=== PATIENT | female | born 1980 | race African-American/Black ===

== ENCOUNTER 2016-10-30 01:52 | Inpatient (IN) | payer OTHER ==
[2016-10-30 06:23] LABS: Hematocrit 40 % (35-47); Hemoglobin 13.7 g/dl (12.0-16.0); Mean Corpuscular HGB Conc 34 g/dl (31-36); Mean Corpuscular Hemoglobin 32 pg (27-31); Mean Corpuscular Volume 93 fL (80-97); Mean Platelet Volume 9 um3 (7.4-10.4); Red Blood Count 4.26 10^6/ul (4.0-5.4); Red Cell Distribution Width 13 % (10.5-15); White Blood Count 13.3 10^3/ul (3.5-10.8)
[2016-10-30] MEDS ORDERED: Lidocaine 1% MPF* 2 ML VIAL ONE (11:08)
[2016-10-30] MEDS ORDERED: OBEPIDURAL* 250 ML ONE (12:18)
[2016-10-30] MEDS ORDERED: fentaNYL* 50 MCG/ML 2 ML VIAL (100 MCG VIAL) ONE (12:19)
[2016-10-30] MEDS ORDERED: Bupivacaine 0.5% SDV PF* 30 ML VIAL ONE (12:31)
[2016-10-30] MEDS ORDERED: Phenylephrine IV* 40 MCG/ML 10 ML SYRINGE IV PUSH PRN ×2 (13:04)
[2016-10-30] MEDS ORDERED: Sodium Citrate/Citric Acid* 15 ML UDC PO PRN (13:04)
[2016-10-30] MEDS ORDERED: Famotidine TAB* 20 MG PO PRN (13:04)
[2016-10-30] MEDS ORDERED: OBEPIDURAL* 250 ML EPIDURAL SCH (14:00)
[2016-10-30] MEDS ORDERED: Oxytocin in LR* 20 UNITS/1,000 ML BAG IVPB ONE (17:50)
[2016-10-30] MEDS ORDERED: Oxytocin in LR* 20 UNITS/1,000 ML BAG IVPB SCH (18:00)
[2016-10-31] MEDS ORDERED: ceFOXitin 2 GM IVPREMIX* 2 GM/50 ML BAG ONE (00:20)
[2016-10-31] MEDS ORDERED: ceFOXitin 2 GM IVPREMIX* 2 GM/50 ML BAG IVPB ONE (00:20)
[2016-10-31] MEDS ORDERED: Sodium Citrate/Citric Acid* 15 ML UDC PO ONE (00:21)
[2016-10-31] MEDS ORDERED: Famotidine IV* 10 MG/ML 2 ML (20 mg) ONE (00:57)
[2016-10-31] MEDS ORDERED: OXYTOCIN* 10 UNITS/ML 1 ML VIAL ONE ×2 (00:57→01:17)
[2016-10-31] MEDS ORDERED: Ondansetron INJ* 2 MG/ML VIAL IV PRN (01:26)
[2016-10-31] MEDS ORDERED: fentaNYL* 50 MCG/ML 2 ML VIAL (100 MCG VIAL) IV PRN (01:26)
[2016-10-31] MEDS ORDERED: PROCHLORPERAZINE INJ 5 MG/ML 2 ML VIAL IV PRN (01:26)
[2016-10-31] MEDS ORDERED: Acetaminophen TAB* 325 MG PO PRN ×2 (01:26→02:19)
[2016-10-31] MEDS ORDERED: Phenylephrine IV* 40 MCG/ML 10 ML SYRINGE ONE (01:33)
[2016-10-31] MEDS ORDERED: Phenylephrine IV* 40 MCG/ML 10 ML SYRINGE IV PUSH PRN (01:34)
[2016-10-31] MEDS ORDERED: EPHEDrine (Pressors)* 50 MG/ML VIAL IV PUSH PRN (01:34)
[2016-10-31] MEDS ORDERED: Misoprostol TAB* 200 MCG ONE (01:41)
[2016-10-31] MEDS ORDERED: OBEPIDURAL* 250 ML EPIDURAL SCH (02:00)
[2016-10-31] MEDS ORDERED: Dibucaine 1% 28.35 GM TUBE PR PRN (02:19)
[2016-10-31] MEDS ORDERED: Glycerin ADULT SUPP PR PRN (02:19)
[2016-10-31] MEDS ORDERED: Misoprostol TAB* 200 MCG PR ONE (02:19)
[2016-10-31] MEDS ORDERED: Witch Hazel PAD* JAR TOPICAL PRN (02:19)
[2016-10-31] MEDS ORDERED: Oxytocin in LR* 20 UNITS/1,000 ML BAG IVPB SCH (03:00)
[2016-10-31] MEDS: Docusate CAP* 100 MG PO SCH ×3 (07:49→20:56)
[2016-10-31] MEDS: Ibuprofen TAB* 600 MG PO PRN ×3 (07:49→20:57)
[2016-10-31] MEDS: Simethicone CHEW TAB* 80 MG PO SCH ×4 (07:50→20:56)
[2016-10-31] MEDS: oxyCODONE/Acetamin 5/325 MG* TAB PO PRN ×3 (08:57→18:56)
[2016-10-31] MEDS ORDERED: oxyCODONE/Acetamin 5/325 MG* TAB PO PRN (09:01)
--- NOTE | 2016-10-31 12:29 | OP ---
DATE OF OPERATION: 10/30/16 - ROOM #[facility] #[id number] DATE OF : 84 SURGEON: Danna Medina MD NUMERICAL CONTROL ROUTER OPERATOR: Jeniffer Sprague, licensed customs broker. ANESTHESIOLOGIST: Dr. Wallace. ANESTHESIA: Epidural. PRE-OP DIAGNOSIS: Full-term intrauterine , arrest of descent at fully dilated. POST-OP DIAGNOSIS: Full-term intrauterine , arrest of descent at fully dilated. OPERATIVE PROCEDURE: Primary low-flap transverse section via Pfannenstiel. Uterus closed in 2 layers. FINDINGS: Viable male infant in the direct occiput posterior position, cord around the neck x1, meconium stained amniotic fluid. Normal-appearing uterus, normal- appearing ovaries, and fallopian tubes bilaterally. CONDITION: The patient was brought to the recovery room awake and in stable condition. ESTIMATED BLOOD LOSS: 800 cc. URINE OUTPUT: Per nursing notes. COMPLICATIONS: None. COUNTS: Sponge, lap, and needle count were correct x2. DESCRIPTION OF PROCEDURE: The patient was brought to the operating room when epidural anesthesia was found to be adequate. The patient was prepped and draped in the usual sterile fashion in a dorsal supine position with a leftward tilt. A Monk catheter had been placed during labor under sterile conditions. A time-out was performed. The epidural was tested with the Allis clamp and found to be adequate. A Pfannenstiel skin incision was made approximately 2 cm above the symphysis pubis. This was carried down to the underlying layer of fascia. The fascia was incised in the midline and the fascial incision was extended laterally with the Yeung scissors. The fascia was grasped with the Evelyn clamps and the rectus muscle was dissected using sharp and blunt dissection. The peritoneum was identified, tented up, and entered bluntly. The peritoneal incision was extended bluntly. The bladder blade was inserted. The vesicouterine peritoneum was identified and a bladder flap was created. The bladder blade was re-inserted. A low-flap transverse incision was made on the uterus to the level of the membranes. The uterine incision was extended laterally bluntly. The was delivered atraumatically from the vertex presentation. Cord around the neck x1 was reduced and the baby was vigorous. The cord was milked. The cord was clamped and cut and the infant was handed off to the awaiting chemical dependency attendant, Dr. Mccracken. Apgars were 8 and 9, weight was 9 pounds 3 ounces. The placenta was delivered. The uterus was exteriorized. The uterus was cleared of all clots and debris and the uterine incision was repaired using 0 Vicryl in a running locked fashion. There was uterine atony, IV Pitocin was infused and 800 mcg per rectum of Cytotec was placed by a nurse. A second layer of the same suture was used to imbricate the uterine incision and obtain excellent hemostasis. The ovaries and fallopian tubes were examined and found to be normal. The abdomen and pelvis were copiously irrigated with warm normal saline. Once again, the uterine incision was examined and found to be hemostatic. The uterus was returned to the pelvis. The gutters were cleared of all clots and debris and again the uterine incision was examined and found to be hemostatic. The peritoneum was closed with 3-0 Vicryl. The subfascial layer was examined and found to be hemostatic. The fascia was closed using 0 Vicryl. The subcutaneous tissue was irrigated, any small bleeders were cauterized with the Bovie, and the skin was closed with 4-0 Monocryl. Steri-Strips were applied. A pressure dressing was applied. The patient tolerated the procedure well and was brought to the recovery room awake and in stable condition. [id number]/[facility] #: [id number] [place]
[2016-11-01] MEDS: Ibuprofen TAB* 600 MG PO PRN ×4 (03:10→23:33)
[2016-11-01] MEDS: oxyCODONE/Acetamin 5/325 MG* TAB PO PRN ×5 (03:11→21:21)
[2016-11-01 06:50] LABS: Hematocrit 36 % (35-47); Hemoglobin 12.2 g/dl (12.0-16.0); Mean Corpuscular HGB Conc 34 g/dl (31-36); Mean Corpuscular Hemoglobin 32 pg (27-31); Mean Corpuscular Volume 94 fL (80-97); Mean Platelet Volume 9 um3 (7.4-10.4); Red Cell Distribution Width 14 % (10.5-15); White Blood Count 14.2 10^3/ul (3.5-10.8)
[2016-11-01 07:03] LABS: Add Diff/Slide Review? Slide Review Added; Comments Flag Yes
[2016-11-01] MEDS: Simethicone CHEW TAB* 80 MG PO SCH ×4 (07:41→21:21)
[2016-11-01] MEDS ORDERED: Ferrous Gluconate TAB* 324 MG TAB PO SCH (09:00)
[2016-11-01] MEDS: Docusate CAP* 100 MG PO SCH ×3 (11:03→21:21)
--- NOTE | 2016-11-01 14:33 | PTEDU ---
Patient Name: RAFIA HICKEY RAFIA HICKEY selected video: BBOB: Bonding Through Massage to view on 11/01/2016 at 2:3 2:33 PM from [id number]
[2016-11-02] MEDS: oxyCODONE/Acetamin 5/325 MG* TAB PO PRN ×5 (02:10→23:25)
[2016-11-02] MEDS: Ibuprofen TAB* 600 MG PO PRN ×3 (05:31→20:57)
--- NOTE | 2016-11-02 07:19 | PTEDU ---
Patient Name: RAFIA HICKEY RAFIA HICKEY selected video: Never Ever Shake a Baby to view on 11/02/2016 at 7:17:31 AM from [email or web address]
--- NOTE | 2016-11-02 07:30 | PTEDU ---
Patient Name: RAFIA HICKEY RAFIA HICKEY selected video: BBOB: Nurturing Your Gorgeous \T\Growing Baby by to view on 11/02/2016 at 7:29:47 AM [id number]
[2016-11-02] MEDS: Simethicone CHEW TAB* 80 MG PO SCH ×4 (10:47→21:00)
[2016-11-02] MEDS: Docusate CAP* 100 MG PO SCH ×3 (10:47→20:57)
--- NOTE | 2016-11-02 13:53 | PTEDU ---
Patient Name: RAFIA HICKEY RAFIA HICKEY selected video: BBOB: Nurturing Your Gorgeous \T\Growing Baby by to view on 11/02/2016 at 1:52:51 PM from [id number]
--- NOTE | 2016-11-02 17:01 | PTEDU ---
Patient Name: RAFIA HICKEY RAFIA HICKEY selected video: Follow Me Mum: [employer] Successful to view on at 5:00:18 PM from [id number]
--- NOTE | 2016-11-02 17:21 | PTEDU ---
Patient Name: RAFIA HICKEY RAFIA HICKEY selected video: Follow Me Mum: [employer] Successful to view on at 5:20:53 PM from [id number]
[2016-11-03] MEDS: Ibuprofen TAB* 600 MG PO PRN ×2 (02:55→09:06)
[2016-11-03] MEDS: oxyCODONE/Acetamin 5/325 MG* TAB PO PRN ×2 (04:26→09:07)
[2016-11-03 08:10] VITALS: BP 135/72
[2016-11-03] MEDS: Simethicone CHEW TAB* 80 MG PO SCH (09:06)
[2016-11-03] MEDS: Docusate CAP* 100 MG PO SCH (09:06)
== END 2016-11-03 12:58 | disposition home or self-care (01) | DRG 766 ==
LOC: MCHOBOUT 01:52 → MCHOB 02:47
PROVIDERS: ADMIT Midwife; ATTEND Obstetrics & Gynecology
PROC: 10907ZC Drainage of Amniotic Fluid, Therapeutic from Products of Conception, Via Natural or Artificial Opening (ICD-10-PCS; 2016-10-31)
PROC: 10D00Z1 Extraction of Products of Conception, Low, Open Approach (ICD-10-PCS; principal; 2016-10-31 00:48)
DX: O62.1 Secondary uterine inertia (principal); O48.0 Post-term pregnancy; O99.824 Streptococcus B carrier state complicating childbirth; O32.8XX0 Maternal care for other malpresentation of fetus, not applicable or unspecified; O69.81X0 Labor and delivery complicated by cord around neck, without compression, not applicable or unspecified; O77.0 Labor and delivery complicated by meconium in amniotic fluid; Z3A.40 40 weeks gestation of pregnancy; Z37.0 Single live birth
CPT/HCPCS: 36415; 76815; 85025; 86850; 86900; 86901; A9270-GY; J0694; J2590; J3010

== ENCOUNTER 2018-01-10 08:47 | Emergency (ER) | payer OTHER ==
[2018-01-10 09:00] VITALS: BP 97/64
--- NOTE | 2018-01-10 10:06 | UC ---
Eye Complaint HPI - HPI Summary HPI Summary: 37 y/o female presents to the urgent care c/o B/L red eyes w/ yellowish discharge since yesterday. Pt reports this morning she woke up w/ crusting eyes. She has had mild nasal congestion. Pt denies fevers, visual disturbances, LONGORIA, photophobia, SOB, chest pain, abdominal pain, N/V/D. - History of Current Complaint Chief Complaint: UCEye Stated Complaint: EYE COMPLAINT Time Seen by Provider: 01/10/18 10:05 Hx Obtained From: Patient Onset/Duration: Gradual Onset, Lasting Days - 1 day, Still Present, Worse Since - today Timing: Constant Severity Initially: Mild Severity Currently: Mild Pain Intensity: 2 Pain Scale Used: 0-10 Numeric Location of Injury: Conjunctiva - B/L Character: Foreign Body Sensation Aggravating Factor(s): Blinking Alleviating Factor(s): Nothing Associated Signs And Symptoms: Positive: Drainage (Purulent). Negative: Photophobia, Vision Impairment Bilateral, Fever, Swelling - Risk Factors Penetrating Injury Risk Factor: Negative Globe Rupture Risk Factors: Negative Acute Glaucoma Risk Factors: Negative - Allergies/Home Medications Allergies/Adverse Reactions: Allergies Allergy/AdvReac Type Severity Reaction Status Date / Time No Known Allergies Allergy Verified 01/10/18 08:53 Home Medications: Home Medications Norethindrone (NF) [Gala (NF)] 0.35 mg PO DAILY 01/10/18 [History Confirmed 01/10/18] PMH/Surg Hx/FS Hx/Imm Hx Previously Healthy: Yes - Pt denies PMHX - Surgical History Surgical History: Yes Surgery Procedure, Year, and Place: 2017 - Family History Known Family History: Positive: Cardiac Disease, Diabetes - Social History Occupation: Employed Full-time Lives: With Family Alcohol Use: None Substance Use Type: None Smoking Status (MU): Never Smoked Tobacco - Immunization History Most Recent Influenza Vaccination: 05/05 Most Recent Pneumonia Vaccination: unsure Review of Systems Constitutional: Negative Skin: Negative Eyes: Drainage - yellowish crusting, Eye Redness - B/L eyes ENT: Nasal Discharge - mild Respiratory: Negative Cardiovascular: Negative Gastrointestinal: Negative Genitourinary: Negative Motor: Negative Neurovascular: Negative Musculoskeletal: Negative Neurological: Negative Psychological: Negative Is Patient Immunocompromised?: No All Other Systems Reviewed And Are Negative: Yes Physical Exam - Summary Physical Exam Summary: Vital Signs Reviewed: Yes General: Well appearing, well nourished female in no apparent pain distress Eyes: Positive: B/L Conjunctiva Inflamed - Visual acuity: WNL,Visual mehta: full to confrontation. PERRLA, EOMI intact w/out limitation or complaint of pain. eyelashes clear. mild tearing and yellowish drainage observed. No ciliary flush. No chemosis, No photophobia. Normal fundoscopic exam; no proptosis, exophthalmos, nystagmus. ENT: Positive: Normal ENT inspection, Hearing grossly normal, Pharynx normal, Nasal congestion, Nasal drainage - clear, TMs normal - B/L external ear canal clear , TM's WNL. Negative: Tonsillar swelling, Tonsillar exudate Neck: Positive: Supple, Nontender, No Lymphadenopathy Respiratory: Positive: Chest nontender, Lungs clear, Normal breath sounds, No respiratory distress Cardiovascular: Positive: RRR, No Murmur, Pulses Normal, Brisk Capillary Refill Abdomen Description: Positive: Nontender, No Organomegaly, Soft. Negative: CVA Tenderness (R), CVA Tenderness (L) Bowel Sounds: Positive: Present Musculoskeletal: Positive: Strength Intact, ROM Intact, No Edema Neurological Exam: Normal Psychological Exam: Normal Skin Exam: Normal Triage Information Reviewed: Yes Vital Signs: Initial Vital Signs Temp 97.7 F 01/10/18 08:54 Pulse 63 01/10/18 08:54 Resp 16 01/10/18 08:54 BP 97/64 01/10/18 08:54 Pulse Ox 99 01/10/18 08:54 Eye Complaint Course/Dx - Course Course Of Treatment: 37 y/o female presents to the urgent care c/o B/L red eyes w/ yellowish discharge since yesterday. Pt reports this morning she woke up w/ crusting eyes. She has had mild nasal congestion. Pt denies fevers, visual disturbances, LONGORIA, photophobia, SOB, chest pain, abdominal pain, N/V/D. Most likely Bacterial conjunctivitis. Pt Rx Ciprofloxacin ophthalmic drops and advised if symptoms do not improve or worsen to f/u with Densitometrist Dr Abel Paz in 2-3 days. D/c instructions explained.Pt understood and agreed w / plan of care. - Differential Dx/Diagnosis Differential Diagnosis/HQI/PQRI: Conjunctivitis, Corneal Abrasion, Keratitis, Penetrating Injury, Periorbital Cellulitis, Uveitis Provider Diagnoses: 1- B/L eye bacterial conjunctivitis Discharge - Sign-Out/Discharge Documenting (check all that apply): Patient Departure All imaging exams completed and their final reports reviewed: No Studies - Discharge Plan Condition: Stable Disposition: HOME Prescriptions: Ciprofloxacin 0.3% OPTH.DEA* [Cipro 0.3% Opth*] 1 drop BOTH EYES Q2H #1 btl Patient Education Materials: Conjunctivitis (ED) Referrals: Britt Fernández CNM [Primary Care Provider] - If Needed Abel Paz MD [Medical Doctor] - If Needed Additional Instructions: 1-Please apply ophthalmic drops as instructed and finish the full course of treatment to avoid recurrent infection. Encourage hand washing to avoid spreading 2-If you do not improve or if symptoms worsen please f/u with battery tester field or PCP for further evaluation and treatment - Billing Disposition and Condition Condition: STABLE Disposition: Home
--- NOTE | 2018-01-11 07:11 | UC ---
Discharge - Sign-Out/Discharge Documenting (check all that apply): Post-Discharge Follow Up All imaging exams completed and their final reports reviewed: No Studies - Discharge Plan Condition: Stable Disposition: HOME Prescriptions: Ciprofloxacin 0.3% OPTH.DEA* [Cipro 0.3% Opth*] 1 drop BOTH EYES Q2H #1 btl Patient Education Materials: Conjunctivitis (ED) Referrals: Britt Fernández CNM [Primary Care Provider] - If Needed Abel Paz MD [Medical Doctor] - If Needed Additional Instructions: 1-Please apply ophthalmic drops as instructed and finish the full course of treatment to avoid recurrent infection. Encourage hand washing to avoid spreading 2-If you do not improve or if symptoms worsen please f/u with sound equipment mechanic or PCP for further evaluation and treatment - Billing Disposition and Condition Condition: STABLE Disposition: Home
== END 2018-01-10 10:24 | disposition home or self-care (01) ==
LOC: UCEAST 08:47
DX: H10.9 Unspecified conjunctivitis (principal); R09.81 Nasal congestion
CPT/HCPCS: 99212; G0463

== ENCOUNTER 2018-02-01 20:49 | Emergency (ER) | payer OTHER ==
[2018-02-01 20:55] VITALS: BP 116/64
[2018-02-01] MEDS ORDERED: Silver Sulfadiazine 1%* 20 GM TOPICAL ONE (21:22)
--- NOTE | 2018-02-01 21:25 | UC ---
HPI BURN - HPI Summary HPI Summary: Pt is a 37 y/o F presents to s/p burning herself. She rates the pain a 4/10 and describes it as constant/burning. Pain is located on the palmar side of her R forearm. The pain is neither alleviated or aggravated by anything. Assoc. Sx: Burn - R forearm. Denies: fever, SOB. - History of Current Complaint Chief Complaint: UCBurn Stated Complaint: BURN R ARM Hx Obtained From: Patient Hx Last Menstrual Period: 01/20/2016 Occurred: Minutes Ago Length of Exposure: Unknown Onset Severity: Mild Current Severity: Mild Pain Intensity: 4 Pain Scale Used: 0-10 Numeric Location: RUE - forearm Character: Scald Aggravating Factor(s): Nothing Alleviating Factor(s): Nothing Associated Signs & Symptoms: Negative: SOB - Allergy/Home Medications Allergies/Adverse Reactions: Allergies Allergy/AdvReac Type Severity Reaction Status Date / Time No Known Allergies Allergy Verified 02/01/18 20:55 PMH/Surg Hx/FS Hx/Imm Hx Endocrine History: Other Other Endocrine History: NEG: DM Cardiovascular History: Other Other Cardiovascular History: NEG: CAD, HTN - Surgical History Surgical History: Yes Surgery Procedure, Year, and Place: 2017 - Family History Known Family History: Positive: Cardiac Disease, Hypertension Negative: Diabetes - Social History Occupation: Employed Full-time Lives: With Family Alcohol Use: None Substance Use Type: None Smoking Status (MU): Never Smoked Tobacco - Immunization History Most Recent Influenza Vaccination: 05/05 Most Recent Pneumonia Vaccination: unsure Review of Systems Constitutional: Other - NEG: fever Skin: Other - POS: Burn - L forearm Respiratory: Other - NEG: SOB. All Other Systems Reviewed And Are Negative: Yes Physical Exam - Summary Physical Exam Summary: Appearance: Well-appearing, Well-nourished Skin: 1st degree burn - 2 areas on L forearm: no blistering, no charring, some erythema. Eyes: Normal, PERRL, EOMI, sclera anicteric ENT: Normal Neck: Supple, nontender Respiratory: Clear to auscultation Cardiovascular: S1, S2, no murmur, no rub, no gallop Abdomen: Soft, nontender, no organomegaly Bowel sounds: Present Musculoskeletal: Normal, Strength/ROM Intact, no edema, pulses symmetrical Neurological: Normal, A&Ox3, cranial nerves II-XII WNL, follows commands, gait not tested, sensation intact to pin and light touch Psychiatric: affect normal, behavior appropriate, dressed appropriately, judgment intact Triage Information Reviewed: Yes Vital Signs: Initial Vital Signs Temp 98 F 02/01/18 20:50 Pulse 66 02/01/18 20:50 Resp 14 02/01/18 20:50 BP 116/64 02/01/18 20:50 Pulse Ox 100 02/01/18 20:50 Vital Signs Reviewed: Yes Burn Calculation - Left Arm 9% Left Arm 1st De - Burn is located on palmar aspect of L forearm - Total 1st Deg Total: 1 Total % BSA: 1 - [place] Formula for Fluid Resuscitation Weight: 70.76 kg 24 -Hour Fluid Replacement: 0.0 Course/Dx Burn - Course Course Of Treatment: Provider saw pt and Dx her burn as a first degree burn and will be D/C home with a treatment. Discharge - Sign-Out/Discharge Documenting (check all that apply): Patient Departure All imaging exams completed and their final reports reviewed: No Studies - Discharge Plan Condition: Good Disposition: HOME Patient Education Materials: Superficial Burn (ED) Referrals: Britt Fernández CNM [Primary Care Provider] - 2 Days Additional Instructions: RETURN TO THE EMERGENCY DEPARTMENT FOR CHANGING OR WORSENING SYMPTOMS - Attestation Statements Document Initiated by Scribe: Yes Documenting Scribe: Reji Castellon Provider For Whom Scribe is Documenting (Include Credential): Jamie Correa MD. Scribe Attestation: Reji Bajwa, scribed for Jamie Correa MD. on 02/01/18 at 2132.
== END 2018-02-01 21:33 | disposition home or self-care (01) ==
LOC: UCEAST 20:49
DX: T22.112A Burn of first degree of left forearm, initial encounter (principal); T31.0 Burns involving less than 10% of body surface; X08.8XXA Exposure to other specified smoke, fire and flames, initial encounter; Y92.9 Unspecified place or not applicable
CPT/HCPCS: 99212; A9270-GY; G0463

== ENCOUNTER 2019-09-18 05:39 | Inpatient (IN) | payer OTHER ==
[2019-09-18] MEDS ORDERED: ceFAZolin* 2 GM* ONE DOSE (Duplex) IVPB (07:00)
[2019-09-18 07:37] LABS: Urine Benzodiazepine Screen None Detected (None Detect); Urine Opiates Screen None Detected (None Detect)
[2019-09-18] MEDS ORDERED: Morphine PF AMP (0.5MG/ML) 5 MG/10 ML AMP ONE (08:00)
[2019-09-18] MEDS ORDERED: Oxytocin 10 UNITS/ML 1 ML VIAL ONE (08:45)
[2019-09-18] MEDS ORDERED: Ondansetron 4 mg VIAL 2 MG/ML 2 ml VIAL ONE (08:45)
[2019-09-18] MEDS ORDERED: Phenylephrine IV 10 MG/ML 1 ml VIAL ONE (08:45)
[2019-09-18] MEDS ORDERED: HYDROmorphone 1 MG/1 ML SYRINGE IV PRN (08:46)
[2019-09-18] MEDS ORDERED: Acetaminophen IV 1 GM/100ML 1,000 MG/100 ML VIAL IVPB ONE (08:46)
[2019-09-18] MEDS ORDERED: Naloxone 0.4 mg VIAL 0.4 mg/ml 1 ml VIAL IV PRN ×2 (08:46→08:47)
[2019-09-18] MEDS ORDERED: DiMENhydriNATE IV 50 mg/ml 1 ml VIAL IV PUSH PRN (08:46)
[2019-09-18] MEDS ORDERED: Nalbuphine 10 MG/ML 1 ML VIAL IV PRN (08:47)
[2019-09-18] MEDS ORDERED: oxyCODONE/Acetamin 5/325 mg TAB PO PRN (08:47)
[2019-09-18] MEDS ORDERED: Ondansetron 4 mg VIAL 2 MG/ML 2 ml VIAL IV PRN (08:47)
[2019-09-18] MEDS ORDERED: Witch Hazel PAD JAR TOPICAL PRN (09:53)
[2019-09-18] MEDS ORDERED: Lactated Ringers 1000 ml BAG 1,000 ML IV SCH (10:00)
[2019-09-18] MEDS ORDERED: HYDROmorphone 0.5 MG/0.5 ML SYRINGE IV PRN (11:00)
[2019-09-18] MEDS ORDERED: diPHENhydraMINE IV 50 MG/ML 1 ml VIAL (BENADRYL) IV PRN (16:58)
[2019-09-20 01:59] LABS: Hematocrit 36 % (35-47); Hemoglobin 12.5 g/dL (12.0-16.0); Red Blood Count 3.83 10^6 /uL (3.70-4.87); White Blood Count 11.5 10^3/uL (3.5-10.8)
[2019-09-20 02:00] LABS: ABS Eosinophils 0.1 10^3/ul (0-0.6); ABS Lymphocytes 1.6 10^3/ul (1.0-4.8); ABS Monocytes 0.9 10^3/ul (0-0.8); Eosinophil % 0.6 %; Lymphocyte % 13.8 %; Mean Corpuscular HGB Conc 35 g/dL (31-36); Mean Corpuscular Hemoglobin 33 pg (27-31); Mean Corpuscular Volume 93 fL (80-97); Mean Platelet Volume 8.7 fL (7.4-10.4); Platelet Count 192 10^3/uL (150-450); Red Cell Distribution Width 13 % (10-15)
[2019-09-20 07:59] VITALS: BP 126/67
== END 2019-09-20 12:30 | disposition home or self-care (01) | DRG 788 ==
LOC: MCHOB 05:39
PROVIDERS: ADMIT Obstetrics & Gynecology; ATTEND Obstetrics & Gynecology